=== PATIENT | male | born 1970 | race Caucasian/White ===

== ENCOUNTER 2020-08-18 04:31 | Emergency (ER) | payer SELFPAY ==
[~2020-08-18] VITALS: Ht 180.3 cm; Wt 72.7 kg
[2020-08-18 04:38] VITALS: BP 148/92
[2020-08-18] MEDS ORDERED: DEXAMETHASONE 4 MG TABLET PO ONE (05:00)
[2020-08-18] MEDS ORDERED: BENZ100C PO (05:04)
[2020-08-18] MEDS ORDERED: PRED20TA PO (05:04)
[2020-08-18] MEDS ORDERED: ALBU2.5V8 IH (05:04)
--- NOTE | 2020-08-18 05:08 | PHYS DOC ---
Past History Past Medical History: Other Additional Past Medical Histor: degenerative hip disease Past Surgical History: Other Additional Past Surgical Histo: carpal tunnel Alcohol Use: None Drug Use: Methamphetamine, Opiates General Adult EDM: Chief Complaint: SHORTNESS OF BREATH HPI: HPI: 50-year-old male presents with report of 1 day history of shortness of breath and cough. Reports cough is nonproductive. Patient is a chronic smoker. Denies fever or chills. Denies known exposure to COVID-19. Denies nasal congestion or sore throat. Review of Systems: Review of Systems: Constitutional: Denies fever or chills Eyes: Denies redness or eye pain HENT: Denies nasal congestion or sore throat Respiratory: Reports cough and shortness of breath Cardiovascular: Denies chest pain or palpitations GI: Denies abdominal pain, nausea, or vomiting : Denies dysuria or hematuria Musculoskeletal: Denies back pain or joint pain Integument: Denies rash or skin lesions Neurologic: Denies headache, focal weakness or sensory changes Complete systems were reviewed and found to be within normal limits, except as documented in this note. Current Medications: Current Meds: Current Medications Medications (Trade) Dose Ordered Sig/Sandra Start Time Stop Time Status Last Admin Dose Admin Dexamethasone (Decadron) 10 mg 1X ONCE 08/18/20 05:00 08/18/20 05:01 DC Allergies: Allergies: Allergies Coded Allergies Type Severity Reaction Last Updated Verified No Known Drug Allergies 08/18/20 No Physical Exam: PE: Constitutional: Well developed, well nourished, no acute distress, non-toxic appearance HENT: Normocephalic, atraumatic Eyes: Conjunctiva normal, no discharge Neck: Normal range of motion, supple Lungs & Thorax: No respiratory distress, equal chest rise and fall, no wheezing/rhonchi/rales Cardiovascular: Regular rate and normal heart sounds Abdomen: Soft, no tenderness Skin: Warm, dry, no erythema, no rash Extremities: No tenderness, ROM intact, no edema Neurologic: Alert and oriented X 3, no focal deficits noted Psychologic: Affect normal, judgment normal Current Patient Data: Vital Signs: Vital Signs Date Time Temp Pulse Resp B/P (MAP) Pulse Ox O2 Delivery O2 Flow Rate FiO2 08/18/20 04:38 98.3 75 18 148/92 (110) 100 Room Air EKG: EKG: @0441 NSR at 72bpm, NO ST elevation, QRS 80ms, QT/QTc 380/422ms Radiology/Procedures: Radiology/Procedures: PROCEDURE: CHEST AP ONLY Chest AP portable at 0438: Reason for examination: Cough and shortness of breath. Comparison is made to previous study dated 09/08/2014. The heart size is normal. Mediastinum is unremarkable. Lung del tor[place] again show calcified granuloma in the left upper lobe. No new infiltrates or pleural effusions are seen. No pneumothorax is evident. No acute bony abnormalities are seen. Impression: No acute cardiopulmonary disease. Electronically signed by: Manjula Ortega MD (08/18/2020 5:10 AM) [facility] Heart Score: C/O Chest Pain: N/A Course & Med Decision Making: Course & Med Decision Making Pertinent Imaging studies reviewed. (See chart for details) Patient presents with HPI and physical exam concerning for acute bronchitis secondary to patient's smoking history. Afebrile. Sats stable. Lungs clear to auscultation. Chest x-ray obtained without acute process. EKG stable. Symptomatic treatment provided with oral steroid. Patient stable for discharge with outpatient follow-up with PCP. Discussed findings and plan with patient, who acknowledges understanding and agreement. Mayra Disclaimer: Mayra Disclaimer: This electronic medical record was generated, in whole or in part, using a voice recognition dictation system. Departure Departure: Impression: Primary Impression: Bronchitis Disposition: HOME / SELF CARE / HOMELESS Condition: STABLE Referrals: PCP,NO (PCP) Patient Instructions: Acute Bronchitis, [id number], Smoking Cessation, Tips For Success Scripts Benzonatate (TESSALON PERLE) 100 Mg Capsule 1 CAP PO TID PRN for COUGH, #30 CAP Prov: JOSELYN LYN DO 08/18/20 Albuterol Sulfate (PROAIR HFA INHALER) 8.5 Gm Hfa.aer.ad 2 PUFF IH PRN Q4-6HRS PRN for wheezing for 21 Days, #1 INHALER 0 Refills Prov: JOSELYN LYN DO 08/18/20 Prednisone (PREDNISONE) 20 Mg Tablet 2 TAB PO DAILY for Bronchitis, #8 TAB Start this prescription tomorrow, 08/19/20 Prov: JOSELYN LYN DO 08/18/20 JOSELYN LYN DO Aug 18, 2020 05:08
--- NOTE | 2020-08-18 05:12 | RAD ---
Chest AP portable at 0438: Reason for examination: Cough and shortness of breath. Comparison is made to previous study dated 09/08/2014. The heart size is normal. Mediastinum is unremarkable. Lung del tor[place] again show calcified granuloma in the left upper lobe. No new infiltrates or pleural effusions are seen. No pneumothorax is evident. No acute bony abnormalities are seen. Impression: No acute cardiopulmonary disease. Electronically signed by: Manjula Ortega MD (08/18/2020 5:10 AM) [facility]
--- NOTE | 2020-08-18 05:50 | EKG ---
[address] [address] Test Date: 2020-08-18 Test Time: 04:41:25 Pat Name: WILL SMITH Department: Room: Gender: M Consumer Marketing Analyst: : 1970 Requested By: JOSELYN LYN Order Number: [id number] Reading MD: Measurements Intervals Golden Rate: 72 P: 64 AK: 172 QRS: 46 QRSD: 80 T: 36 QT: 380 QTc: 422 Interpretive Statements SINUS RHYTHM NORMAL ECG RI6.02 No previous ECG available for comparison
== END 2020-08-18 05:13 | disposition home or self-care (01) ==
LOC: ER 04:31
DX: J40 Bronchitis, not specified as acute or chronic (principal)
CPT/HCPCS: 71045; 93005; 99283; J8540